=== PATIENT | female | born 1985 | race Caucasian/White ===

== ENCOUNTER 2016-03-21 03:47 | Emergency (ER) | payer OTHER ==
[~2016-03-21] VITALS: Ht 170.2 cm; Wt 82.6 kg
[2016-03-21 06:20] LABS: Basophils # (auto) 0 uL; Basophils % (auto) 0.3 % (0.0-2.0); Eosinophils # (auto) 0 uL; Eosinophils % (auto) 0.7 % (0.0-7.0); Hematocrit 39.1 % (36.0-46.0); Hemoglobin 12.6 g/dL (12.2-16.2); Lymphocytes % (auto) 32.3 % (10.0-50.0); Mean Corpuscular Hemoglobin 27.4 pg (28.0-32.0); Mean Corpuscular Hgb Conc. 32.2 g/dL (32.0-36.0); Mean Corpuscular Volume 84.9 fL (80.0-100.0); Mean Platelet Volume 9.5 fL (7.4-10.4); Monocytes # (auto) 0.7 uL; Neutrophils # (auto) 3.4 uL; Neutrophils % (auto) 55.7 % (37.0-80.0); Platelet Count (auto) 208 10^3/uL (140-450); Red Cell Distribution Width 12.9 % (11.6-16.0); White Blood Cell 6.1 10^3/uL (4.4-10.8)
[2016-03-21 06:24] LABS: Albumin 3.7 g/dL (3.4-5.0); BUN/Creatinine Ratio 9.7; Calcium 8.1 mg/dL (8.5-10.1); Potassium 3.9 mmol/L (3.5-5.1)
[2016-03-21 06:27] LABS: Bilirubin, Total 0.2 mg/dL (0.2-1.0); Total Protein 7.2 g/dL (6.4-8.2)
[2016-03-21 07:35] VITALS: BP 132/92
== END 2016-03-21 09:37 | disposition left against medical advice (07) ==
LOC: ER 03:50
DX: R50.9 Fever, unspecified (principal); R11.2 Nausea with vomiting, unspecified; Z53.21 Procedure and treatment not carried out due to patient leaving prior to being seen by health care provider
CPT/HCPCS: 36415; 80053; 84702; 85025